=== PATIENT | female | born 1960 | race African-American/Black ===

== ENCOUNTER 2018-08-31 16:51 | Emergency (ER) | payer MEDICAID, OTHER ==
[~2018-08-31] VITALS: Ht 170.2 cm; Wt 78.0 kg
[~2018-08-31 16:51] MED LIST: AZAT50TA24 PO; CARV12.545 PO; FAMO20TA8 PO; FURO-152 PO; HYDR200T35 PO; LISI-604 PO; TRAM-350 PO
[2018-08-31 17:23] VITALS: BP 127/63
== END 2018-08-31 23:10 | disposition left against medical advice (07) ==
LOC: ER 16:51
DX: Z53.21 Procedure and treatment not carried out due to patient leaving prior to being seen by health care provider (principal)

== ENCOUNTER 2021-08-22 03:46 | Emergency (ER) | payer OTHER ==
[~2021-08-22 03:46] MED LIST changes: -LISI-604 PO; +LISI20TA31 PO
[2021-08-22] MEDS ORDERED: KETOROLAC 60MG/2ML VIAL IM STA (05:24)
[2021-08-22] MEDS ORDERED: ALBUTEROL (0.083%) 2.5MG/3ML NEB HHN ONE (05:30)
[2021-08-22 06:28] LABS: BASOPHILS % 1.1 % (0.0-2.0); EOSINOPHILS % 2.2 % (0.0-5.0); HEMATOCRIT. 32.6 % (36.0-48.0); LYMPHOCYTES % 35.9 % (20.0-50.0); MEAN CORPUSCULAR VOLUME 83.4 fL (81.0-99.0); MEAN PLATELET VOLUME 10.2 fl (7.4-10.4); MONOCYTES % 12.1 % (2.0-8.0); NEUTROPHILS % 48.7 % (40.0-76.0); PLATELET 165 x1000/uL (130-400); RED BLOOD CELL COUNT 3.91 mill/uL (4.2-5.4); RED CELL DISTRIBUTION WIDTH 14.1 % (11.6-14.6)
[2021-08-22 06:33] LABS: CHLORIDE 111 mEq/L (98-107)
[2021-08-22 06:37] LABS: CLARITY URINE CLEAR (CLEAR); COLOR URINE YELLOW (YELLOW); KETONES URINE NEGATIVE (NEGATIVE); LEUKOCYTE ESTERASE URINE 2+ (NEGATIVE); NITRITE URINE NEGATIVE (NEGATIVE); OCCULT BLOOD URINE NEGATIVE (NEGATIVE); PH URINE 5.5 (4.5-8.0); PROTEIN URINE NEGATIVE (NEGATIVE); SPECIFIC GRAVITY URINE 1.008 (1.005-1.030); UROBILINOGEN URINE 0.2 E.U./dL (0.2-1.0)
[2021-08-22 06:52] LABS: *AMPHETAMINES SCREEN URINE NEGATIVE (NEGATIVE); *BARBITURATES SCREEN URINE NEGATIVE (NEGATIVE); *BENZODIAZEPINES SCREEN URINE NEGATIVE (NEGATIVE); *COCAINE SCREEN URINE NEGATIVE (NEGATIVE)
[2021-08-22 06:53] LABS: CANNABINOID URINE SCREEN PRESUMTIVE POSITIVE (NEGATIVE); METHADONE URINE SCREEN NEGATIVE (NEGATIVE); OPIATES URINE SCREEN NEGATIVE (NEGATIVE); PHENCYCLIDINE URINE SCREEN NEGATIVE (NEGATIVE)
[2021-08-22 07:06] LABS: HCG SCREEN NEGATIVE
[2021-08-22 14:18] VITALS: BP 158/80
== END 2021-08-22 14:26 | disposition home or self-care (01) ==
LOC: ER 03:46
DX: I50.9 Heart failure, unspecified (principal); T82.118A Breakdown (mechanical) of other cardiac electronic device, initial encounter; Y84.8 Other medical procedures as the cause of abnormal reaction of the patient, or of later complication, without mention of misadventure at the time of the procedure; Z95.0 Presence of cardiac pacemaker; Z87.01 Personal history of pneumonia (recurrent); Z98.51 Tubal ligation status
CPT/HCPCS: 36415; 71045; 80053; 80305; 81003; 83880; 84484; 84703; 85025; 93005; 99285; J1885